=== PATIENT | female | born 1965 | race Caucasian/White ===

== ENCOUNTER 2023-07-15 10:15 | Day surgery (SDC) | payer OTHER ==
[2023-07-15 10:53] LABS: Absolute Lymphocytes (CBC) 2.2 K/uL (0.7-4.9); Lymphocytes % 17.4 % (15.3-44.8); MCV 89.5 fL (80-100); MPV 7.1 fL (7.6-11.3); Platelets 344 thou/uL (152-406); RBC Red Blood Cell Count 4.03 M/uL (3.86-4.86)
[2023-07-15 11:04] LABS: Potassium 4.6 mEq/L (3.5-5.1)
--- NOTE | 2023-07-15 11:17 | RAD REPORT ---
EXAM DESCRIPTION: RAD - Chest Pa And Lat (2 Views) - 07/15/2023 11:12 am CLINICAL HISTORY: PRE-OP Chest pain. COMPARISON: CHEST SINGLE VIEW dated 12/25/2013 TECHNIQUE: PA and lateral views of the chest were obtained. FINDINGS: The lungs are hyperexpanded compatible with COPD. The heart is upper limit of normal in si ze. No fracture or aggressive bony process. IMPRESSION: COPD without acute process identified. The USPSTF recommends annual screening for lung cancer with low-dose CT (LDCT) in adults aged 50 to 80 years who have a 20 pack-year smoking history and currently smoke or have quit within the past 15 years.
--- NOTE | 2023-07-15 11:22 | RAD REPORT ---
EXAM DESCRIPTION: RAD - Hand Right 2 View - 07/15/2023 11:12 am CLINICAL HISTORY: PRE-OP COMPARISON: No comparisons FINDINGS: Moderate soft tissue swelling affects the fifth finger, most prominent at the level of the DIP joint. 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 Cannot ex clude septic joint. No soft tissue gas or radiopaque foreign body seen.
[2023-07-15] MEDS ORDERED: Ringers Lactate 1,000 ML IV ONE (11:54)
[2023-07-15] MEDS ORDERED: FENTANYL CITR 100 MCG/2 ML ONE ×3 (12:00→15:09)
[2023-07-15] MEDS ORDERED: MIDAZOLAM HCL 2 MG/2 ML INJ ONE ×4 (12:00→15:09)
[2023-07-15] MEDS ORDERED: LIDOCAINE 1% MPF 5 ML VIAL ONE ×2 (12:00→12:42)
[2023-07-15] MEDS ORDERED: BUPIVACAINE 0.5% PF 10 ML VIAL ONE ×2 (12:01→13:41)
[2023-07-15] MEDS ORDERED: dexAMETHasone 4 MG/ML VIAL ONE (12:01)
[2023-07-15] MEDS ORDERED: EPINEPHRINE/PF 1 MG/ML AMP ONE (12:01)
[2023-07-15] MEDS ORDERED: dexAMETHasone 10 MG/ML VIAL ONE (12:42)
[2023-07-15] MEDS ORDERED: ROPIVACAINE HCL 20 ML ONE (12:42)
[2023-07-15 14:32] VITALS: O2SAT 100
[2023-07-15] MEDS ORDERED: CIPROFLOXACIN 400mg IV 400 MG/200 ML BAG IV ONE (15:18)
[2023-07-15] MEDS ORDERED: KETOROLAC 30 MG/ML INJ ONE (15:18)
[2023-07-15 15:56] VITALS: BP 125/76; TEMP 97.8
--- NOTE | 2023-07-15 15:58 | P.BOP ---
Preoperative diagnosis: right 5th finger cellulitis , abscess Postoperative diagnosis: same Primary procedure: Incision, drainage and Exc. subQ debridement of right 5th finger abscess Estimated blood loss: <10cc Specimen: pus Findings: as above Anesthesia: General Complications: None Drain(s): Other (1/" packing) Transferred to: Recovery Room Condition: Good
--- NOTE | 2023-07-15 19:37 | OP ---
Date of Procedure: 07/15/2023 Surgeon: Teo New MD Preoperative Diagnoses: Right fifth finger cellulitis and abscess. Postoperative Diagnoses: Right fifth finger cellulitis and abscess. Procedure: Incision and drainage and debridement of right finger abscess. Estimated Blood Loss: Less than 10 mL. Specimens: Pus. Anesthesia: General plus local. Packing: Quarter of an inch packing. Findings: The patient has abscess distal and middle phalanx, pus found. Complications: None. Indication: This is a case of a 57-year-old patient, have cellulitis of the right fifth finger. She decided to do an I and D herself and then after that eventually got worse yesterday and received a c all from the primary doctor to see if I can see them in my office this morning. When I saw her, I be lieve the patient need an I and D, is very tender. She cannot take the needles in that area. She ca nnot tolerate. We contacted the insurance, was kind enough to allow us to take this patient to [facility] this afternoon and also they appreciate for allowing to do the case in this short time. The patient appreciates that too because she cannot tolerate the I and D without anesthetic. This morning, the [facility] decided to do a block in that area to block that area of concern, so we can proceed with surgery. The patient understands the benefits, alternatives, and risks of incision and drainage and excision and debridement, which include, but not limited to infection, bleeding, da mage to adjacent structures, anesthesia complication, nonhealing wound, ND, and . She also unde rstands this may not relieve symptoms. She may require more than one surgical intervention. We clarisse ot rule out at this moment osteomyelitis in this case, but once we follow her in the next several wee ks, we have to decide if there is any other tests that have to be done. She understands importance i n the future not to introduce or trying to herself. She has taken amoxicillin. We are go ing to also cover her with Cipro. She is allergic to sulfa and also hydrocodone. She has taken Mechelle dol as a pain medication prescribed by the primary doctor. Description Of Procedure: The patient was sent to the operating room and placed in supine position. Anesthesia was done without complication. The right hand was prepped and draped in sterile fashion. The patient was already localized. Anesthesia was a sedation because the patient already have a bl ock. We proceeded to find an area in the finger which already have necrotic tissue which is the mid and distal phalanx. We proceeded to make an incision in that area, removed the necrotic tissue, and immediately we find pus over that area. The area was debrided with 3 counter incisions have to be ma de to drain the abscess. Packing was done after irrigation. The patient tolerated the procedure wel l. Cultures were sent. The area was covered with sterile dressings. The patient was sent to [facility] in stable condition. Disposition: Home. Activity: As tolerated. No heavy lifting. Keep the area dressings for next 48 hours until she see me in my office. Keep the dressings intact. SRIKANTH/TIRSO Voice ID: [id number] Report ID: [id number]
--- NOTE | 2023-07-16 14:09 | EKG ---
Test Date: 2023-07-15 Test Time: 11:58:33 [employer] Estate Financial Analyst: ELVIRA MEASUREMENT RESULTS: Intervals: Rate: 71 NH: 150 QRSD: 84 QT: 380 QTc: 412 [place]: P: 26 NH: 150 QRS: 10 T: 21 INTERPRETIVE STATEMENTS: Normal sinus rhythm Minimal voltage criteria for LVH, may be normal variant Borderline ECG Compared to ECG 11/10/2015 08:44:16 Atrial premature complex(es) no longer present Electronically Signed On 07-16-23 14:06:57 HEAD CD REACTOR OPERATOR by Miles Gil
== END 2023-07-15 16:38 | disposition home or self-care (01) ==
LOC: OR 10:15
PROVIDERS: ATTEND Surgery
PROC: 0J9J0ZX Drainage of Right Hand Subcutaneous Tissue and Fascia, Open Approach, Diagnostic (ICD-10-PCS; principal; 2023-07-15 13:00)
DX: L02.511 Cutaneous abscess of right hand (principal); L03.011 Cellulitis of right finger; I96 Gangrene, not elsewhere classified; E03.9 Hypothyroidism, unspecified; M81.0 Age-related osteoporosis without current pathological fracture; I10 Essential (primary) hypertension; F41.9 Anxiety disorder, unspecified
CPT/HCPCS: 93005; 85025; 80048; 36415; 87205; 88304; 87075; 71046; 73120; 26010; J1100 ×2; J0171; J2001 ×2; J2250 ×4; J3010 ×2; J0744; J7120